=== PATIENT | female | born 1950 | race Caucasian/White ===

== ENCOUNTER 2023-02-11 13:35 | Inpatient (IN) | payer MEDICARE ==
[~2023-02-11] VITALS: Ht 157.5 cm; Wt 65.8 kg
[2023-02-11 14:34] LABS: BASOPHILS ABSOLUTE AUTO 0.04 K/mm3 (0.00-0.23); BASOPHILS PERCENT AUTO 0 % (0-2); EOSINOPHILS PERCENT AUTO 0 % (0-6); Hematocrit 44.2 % (33.0-51.0); Hemoglobin 14.8 g/dL (11.5-16.0); IMMATURE GRAN ABSOLUTE AUTO 0.07 K/mm3 (0.00-0.10); IMMATURE GRAN PERCENT AUTO 0 % (0-1); LYMPHOCYTES PERCENT AUTO 10 % (21-46); MONOCYTES ABSOLUTE AUTO 0.97 K/mm3 (0.16-1.47); MONOCYTES PERCENT AUTO 5 % (4-13); Mean Corpuscular HGB 29.9 pg (26.0-34.0); Mean Corpuscular HGB Conc 33.5 g/dL (31.5-36.5); Mean Corpuscular Volume 89 fL (80-100); Mean Platelet Volume 9.3 fL (9.1-12.4); NEUTROPHILS ABSOLUTE AUTO 15.12 K/mm3 (1.96-9.15); NEUTROPHILS PERCENT AUTO 85 % (41-73); Platelet Count 332 K/mm3 (150-400); RDW Coefficient Variation 13.2 % (11.7-14.2); RDW Standard Deviation 43.3 fL (35.1-46.3); Red Blood Cell Count 4.95 M/mm3 (3.80-5.20)
[2023-02-11 15:08] LABS: Albumin, Blood 3.9 g/dL (3.4-5.0); Albumin/Globulin Ratio 1.1 (0.8-1.8); Bilirubin, Total 0.5 mg/dL (0.1-1.0); Creatinine, Blood 0.87 mg/dL (0.40-1.00); Globulin, Blood 3.5 g/dL (2.2-4.0); Potassium, Blood 3.9 mmol/L (3.5-5.5); Total Protein, Blood 7.4 g/dL (6.4-8.2)
[2023-02-11] MEDS ORDERED: LISI20 PO (16:09)
[2023-02-11] MEDS ORDERED: ELIQUIS5 M3 PO (16:10)
[2023-02-11] MEDS ORDERED: ESCI20 PO (16:10)
[2023-02-11] MEDS ORDERED: METOPROLOL SUCC25 MG PO (16:11)
[2023-02-11 16:57] LABS: Influenza A, PCR NEGATIVE (NEGATIVE); Influenza B, PCR NEGATIVE (NEGATIVE); Resp Syncytial Virus, PCR NEGATIVE (NEGATIVE); SARS-Cov-2 (COVID-19) PCR, MMC NEGATIVE (NEGATIVE)
[2023-02-11 18:11] LABS: Source, Urine Clean Catch
[2023-02-11 18:32] LABS: Appearance, Urine Clear (Clear); Bilirubin, Urine Neg (Neg); Blood, Urine 2+ (Neg); Color, Urine Yellow (P-Yellow); Glucose Qualitative, Urine Neg (Neg); Ketones, Urine 1+ (Neg); Leukocyte Esterase, Urine 1+ (Neg); Nitrite, Urine Neg (Neg); Protein, Urine 1+ (Neg); Urobilinogen, Urine NORM (Normal)
[2023-02-11 19:02] LABS: Bacteria Many /hpf; Hyaline Casts 0-2 /lpf (0-2); Mucus Light (0-Heavy); Squamous Epithelial Cells Mod /hpf (Few)
[2023-02-12] VITALS (9 sets, daily range): BP systolic 77–113; BP diastolic 47–64
[2023-02-12 01:48] LABS: CPK Creatine Kinase 48 U/L (26-193)
--- NOTE | 2023-02-12 05:02 | NUR ---
SHIFT SUMMARY PT IS A&O4, SB TO THE BR, 2L NC PT DOES NOT USE O2 @HOME, PT COMPLAINTS OF WEAKNESS AND BODY ACHES WELL BEING FEBRILE THIS AM, PRN TYLENOL GIVEN PER EMAR, CONTINUE POC
[2023-02-12 09:41] LABS: BASOPHILS ABSOLUTE AUTO 0.07 K/mm3 (0.00-0.23); BASOPHILS PERCENT AUTO 0 % (0-2); EOSINOPHILS ABSOLUTE AUTO 0.14 K/mm3 (0.00-0.68); EOSINOPHILS PERCENT AUTO 0 % (0-6); Hematocrit 37.3 % (33.0-51.0); Hemoglobin 12.2 g/dL (11.5-16.0); IMMATURE GRAN ABSOLUTE AUTO 0.37 K/mm3 (0.00-0.10); IMMATURE GRAN PERCENT AUTO 1 % (0-1); LYMPHOCYTES ABSOLUTE AUTO 2.31 K/mm3 (0.84-5.20); LYMPHOCYTES PERCENT AUTO 7 % (21-46); MONOCYTES ABSOLUTE AUTO 1.57 K/mm3 (0.16-1.47); MONOCYTES PERCENT AUTO 5 % (4-13); Mean Corpuscular HGB 30.2 pg (26.0-34.0); Mean Corpuscular HGB Conc 32.7 g/dL (31.5-36.5); Mean Corpuscular Volume 92 fL (80-100); Mean Platelet Volume 9.7 fL (9.1-12.4); NEUTROPHILS PERCENT AUTO 86 % (41-73); Platelet Count 235 K/mm3 (150-400); RDW Coefficient Variation 13.4 % (11.7-14.2); RDW Standard Deviation 45.4 fL (35.1-46.3); Red Blood Cell Count 4.04 M/mm3 (3.80-5.20); White Blood Cell Count 31.66 K/mm3 (4.00-11.30)
[2023-02-12 09:56] LABS: CPK Creatine Kinase 51 U/L (26-193)
[2023-02-12 09:57] LABS: Albumin, Blood 2.8 g/dL (3.4-5.0); Albumin/Globulin Ratio 0.9 (0.8-1.8); Bilirubin, Total 0.4 mg/dL (0.1-1.0); Bun/Creatinine Ratio 19.4 (12.0-20.0); Creatinine, Blood 0.88 mg/dL (0.40-1.00); Potassium, Blood 3.9 mmol/L (3.5-5.5); Total Protein, Blood 5.8 g/dL (6.4-8.2)
--- NOTE | 2023-02-12 18:12 | NUR ---
SUMMARY- PT A/O X4, SBA TO BATHROOM RELATED TO MILD WEAKNESS AND IV POLE. PT'S BLOOD PRESURE LOW, INCREASED AFTER AM BOLUS- HAS HAD CONT IVM FLUID AND TOLERATING FOOD AND FLUID. DENIES ANY DIZZINESS, STATES GENERAL MALAISE. STATES OCC PAIN R RIBCAGE, INCERASED WITH COUGH. MED WITH TYLENOL RELATED TO DISCOMFORT, STATED PARTIAL RELEIF. PT HAS STRONG PROD COUGH WITH MOD AMOUNT OF WARD [place] SPUTUM, SENT SPECIMEN FOR CX. FAMILY AT BEDSIDE MOST OF THE DAY AND ACTIVE IN PT CARE. WILL REPORT TO NOC ALVIN
[2023-02-13 05:07] LABS: BASOPHILS ABSOLUTE AUTO 0.04 K/mm3 (0.00-0.23); BASOPHILS PERCENT AUTO 0 % (0-2); EOSINOPHILS ABSOLUTE AUTO 0.03 K/mm3 (0.00-0.68); EOSINOPHILS PERCENT AUTO 0 % (0-6); Hematocrit 34.2 % (33.0-51.0); Hemoglobin 11.4 g/dL (11.5-16.0); IMMATURE GRAN PERCENT AUTO 1 % (0-1); LYMPHOCYTES ABSOLUTE AUTO 2.88 K/mm3 (0.84-5.20); LYMPHOCYTES PERCENT AUTO 12 % (21-46); MONOCYTES PERCENT AUTO 4 % (4-13); Mean Corpuscular HGB 30.6 pg (26.0-34.0); Mean Corpuscular HGB Conc 33.3 g/dL (31.5-36.5); Mean Corpuscular Volume 92 fL (80-100); Mean Platelet Volume 10.3 fL (9.1-12.4); NEUTROPHILS ABSOLUTE AUTO 20.85 K/mm3 (1.96-9.15); NEUTROPHILS PERCENT AUTO 83 % (41-73); Platelet Count 238 K/mm3 (150-400); RDW Coefficient Variation 13.5 % (11.7-14.2); RDW Standard Deviation 45.9 fL (35.1-46.3); Red Blood Cell Count 3.72 M/mm3 (3.80-5.20)
--- NOTE | 2023-02-13 05:18 | NUR ---
SHIFT SUMMERY, PT RESTING IN BED, PT ALERT AND ORIENTED. PT DENIED SOB, PT UP TO BR AT JOELLEN, PT STEADY ON FEET, NO C/O SOB BP SEEMED BETTER LAST NOC. IN LOW 100S SYSTOLIC. CALL LIGHT IN REACH.
[2023-02-13 05:35] LABS: Bun/Creatinine Ratio 19.1 (12.0-20.0); Calcium, Blood 8.2 mg/dL (8.5-10.1); Creatinine, Blood 0.79 mg/dL (0.40-1.00); Potassium, Blood 3.8 mmol/L (3.5-5.5)
[2023-02-13 05:46] VITALS: BP 109/68
[2023-02-13 07:30] VITALS: BP 123/59
[2023-02-13 13:10] LABS: Campylobacter Sp Detected (NOT DETECT); E. Coli O157 Not Detected (NOT DETECT); Enteroaggregative E. coli-EAEC Not Detected (NOT DETECT); Enteropathogenic E. coli-EPEC Not Detected (NOT DETECT); Enterotoxigenic E. coli-ETEC Not Detected (NOT DETECT); Plesiomonas Shigelloides Not Detected (NOT DETECT); Salmonella Sp Not Detected (NOT DETECT); Shiga Toxin-prod E. coli-STEC Not Detected (NOT DETECT); Vibrio Cholerae Not Detected (NOT DETECT); Vibrio Sp Not Detected (NOT DETECT); Yersinia Enterocolitica Not Detected (NOT DETECT)
[2023-02-13 13:11] LABS: Adenovirus F 40/41 Not Detected (NOT DETECT); Astrovirus Not Detected (NOT DETECT); Cryptosporidium Not Detected (NOT DETECT); Cyclospora Cayetanensis Not Detected (NOT DETECT); Entamoeba Histolytica Not Detected (NOT DETECT); Giardia Lamblia Not Detected (NOT DETECT); Norovirus GI/GII Detected (NOT DETECT); Rotavirus A Not Detected (NOT DETECT); Sapovirus Not Detected (NOT DETECT); Shigella/Enteroin E. coli-EIEC Not Detected (NOT DETECT)
[2023-02-13 15:33] VITALS: BP 149/74
--- NOTE | 2023-02-13 17:04 | NUR ---
SHIFT SUMMARY PT AWAKE DURING SHIFT REPORT. PLEASANT AND CO-OP WITH CARE. INDEPENDENT IN AND TO BTHRM. VSS; SEE CHART. RESIDENTS AND DR YARBROUGH IN TO SEE PT IN AM. PT REPORTED NEW ONSET OF DIARRHEA TODAY; GI PANEL SENT. PT'S SON HERE TO VISIT THIS AFTERNOON. PT FEELING MUCH BETTER AND WANTING TO GO HOME. DR SLOAN NOTIFIED OF PT WANTING TO GO HOME; POSSIBLE D/C TOMORROW IF NOT LATER TODAY. DR SLOAN WANTING TO SEE RESULTS OF GI PANEL. PT RESTING QUIETLY AT THIS TIME. DENIED FURTHER NEEDS. CALL LT IN REACH.
[2023-02-13 20:46] VITALS: BP 153/72
--- NOTE | 2023-02-14 02:19 | NUR ---
SHIFT SUMMERY, PT RESTING IN BED, WATCHING TV . PT HOPING TO GO HOME IN AM. PT NOT COUGHING TONIGHT AND LUNGS SOUND CLEAR BUT PT HAS SOME WHEEZES BILAT BUT LUNG SOUND SEEM BETTER. CALL LIGHT IN REACH.
[2023-02-14 04:43] LABS: BASOPHILS ABSOLUTE AUTO 0.03 K/mm3 (0.00-0.23); BASOPHILS PERCENT AUTO 0 % (0-2); EOSINOPHILS ABSOLUTE AUTO 0.07 K/mm3 (0.00-0.68); EOSINOPHILS PERCENT AUTO 0 % (0-6); Hematocrit 35.2 % (33.0-51.0); Hemoglobin 11.6 g/dL (11.5-16.0); IMMATURE GRAN ABSOLUTE AUTO 0.05 K/mm3 (0.00-0.10); IMMATURE GRAN PERCENT AUTO 0 % (0-1); LYMPHOCYTES ABSOLUTE AUTO 2.63 K/mm3 (0.84-5.20); LYMPHOCYTES PERCENT AUTO 17 % (21-46); MONOCYTES ABSOLUTE AUTO 0.72 K/mm3 (0.16-1.47); MONOCYTES PERCENT AUTO 5 % (4-13); Mean Corpuscular HGB 29.9 pg (26.0-34.0); Mean Corpuscular Volume 91 fL (80-100); Mean Platelet Volume 10.5 fL (9.1-12.4); NEUTROPHILS ABSOLUTE AUTO 12.17 K/mm3 (1.96-9.15); NEUTROPHILS PERCENT AUTO 78 % (41-73); Platelet Count 258 K/mm3 (150-400); RDW Coefficient Variation 13.2 % (11.7-14.2); RDW Standard Deviation 43.8 fL (35.1-46.3); Red Blood Cell Count 3.88 M/mm3 (3.80-5.20); White Blood Cell Count 15.67 K/mm3 (4.00-11.30)
[2023-02-14 05:23] VITALS: BP 153/80
[2023-02-14 07:57] LABS: Bun/Creatinine Ratio 18.5 (12.0-20.0); Calcium, Blood 8.6 mg/dL (8.5-10.1); Creatinine, Blood 0.76 mg/dL (0.40-1.00); Potassium, Blood 3.7 mmol/L (3.5-5.5)
[2023-02-14 08:01] VITALS: BP 143/63
[2023-02-14 15:36] VITALS: BP 156/97
--- NOTE | 2023-02-14 17:41 | NUR ---
SHIFT SUMMARY: PT A&O X4. PT PLEASANT AND COOPERATIVE WITH ALL CARE. PT C/O FREQUENT DIARRHEA IN MIDDLE OF NIGHT THROUGH MORNING. PT STATES SHE FELT SHE WOULD NOT BE ABLE TO GET HOME WITHOUT HAVING AN ACCIDENT. PT CURRENTLY STATES HER STOOL IS IMPROVING AND IS ALMOST BACK TO NORMAL. PT C/O PAIN IN HER IV WELL HEADACHE. IV FLUSHES WELL. TOLD PT TO LET ME KNOW IF SHE WANTS ME TO CHANGE OUT IV IF IT GETS TO PAINFUL. TYLENOL GIVEN. PT A LITTLE HYPERTENSIVE THIS SHIFT. LISINOPRIL ADDED TO EMAR. CALL LIGHT IN REACH. BED IN LOWEST POSITION. WILL CONTINUE TO MONITOR.
[2023-02-14 19:26] VITALS: BP 131/69
--- NOTE | 2023-02-15 04:47 | NUR ---
SHIFT JOHANA, PT UP IN ROOM WALKING AROUND. PT STATED SHE THOUGH THAT SHE FELT BETTER THAN EARLYER IN THE DAY. PT VERY TALKATIVE. LATER CHECKED ON PT AND PT ASLEEP APPEARED TO BE COMFORTABLE RESP UNLABORED AND EVEN. CALL LIGHT IN REACH.
[2023-02-15 05:01] VITALS: BP 134/72
[2023-02-15 05:51] LABS: Calcium, Blood 8.7 mg/dL (8.5-10.1); Creatinine, Blood 0.69 mg/dL (0.40-1.00)
[2023-02-15 07:45] LABS: BASOPHILS ABSOLUTE AUTO 0.03 K/mm3 (0.00-0.23); BASOPHILS PERCENT AUTO 0 % (0-2); EOSINOPHILS ABSOLUTE AUTO 0.07 K/mm3 (0.00-0.68); EOSINOPHILS PERCENT AUTO 1 % (0-6); Hematocrit 37.1 % (33.0-51.0); Hemoglobin 12.2 g/dL (11.5-16.0); IMMATURE GRAN ABSOLUTE AUTO 0.03 K/mm3 (0.00-0.10); IMMATURE GRAN PERCENT AUTO 0 % (0-1); LYMPHOCYTES ABSOLUTE AUTO 1.69 K/mm3 (0.84-5.20); LYMPHOCYTES PERCENT AUTO 16 % (21-46); MONOCYTES ABSOLUTE AUTO 0.81 K/mm3 (0.16-1.47); MONOCYTES PERCENT AUTO 8 % (4-13); Mean Corpuscular HGB 29.9 pg (26.0-34.0); Mean Corpuscular HGB Conc 32.9 g/dL (31.5-36.5); Mean Corpuscular Volume 91 fL (80-100); Mean Platelet Volume 10.5 fL (9.1-12.4); NEUTROPHILS ABSOLUTE AUTO 7.96 K/mm3 (1.96-9.15); NEUTROPHILS PERCENT AUTO 75 % (41-73); Platelet Count 323 K/mm3 (150-400); RDW Coefficient Variation 13.1 % (11.7-14.2); RDW Standard Deviation 43.8 fL (35.1-46.3); Red Blood Cell Count 4.08 M/mm3 (3.80-5.20); White Blood Cell Count 10.59 K/mm3 (4.00-11.30)
[2023-02-15 07:50] VITALS: BP 127/64
[2023-02-15] MEDS ORDERED: VISBIOME 112.51 EACH PO (12:02)
--- NOTE | 2023-02-15 14:21 | NUR ---
DISCHARGE: PT D/C VIA AUTOMOBILE WITH DAUGHTER. PT HAVING SMALL AMOUNT OF DIARRHEA BUT STATES IT IS BETTER TODAY THAN PREVIOUS DAYS. NO NEW MEDICATIONS. IV AND TELE TAKEN OFF BY NAVEED [place]. PRINTED OUT EDUCATION FOR CONTACT PRECAUTIONS AND LOW FIBER DIET OPTIONS. ALL BELONGS SENT WITH PT AND DAUGHTER. PT KNOWS TO MAKE FOLLOW-UP APPOINTMENT WITH PCP.
== END 2023-02-15 12:45 | disposition home or self-care (01) | DRG 193 ==
LOC: ER 13:35 → MEDS 23:44
PROVIDERS: Family Medicine; Physician Assistant; Student in an Organized Health Care Education/Training Program; ADMIT Internal Medicine
DX: J12.9 Viral pneumonia, unspecified (principal); J96.91 Respiratory failure, unspecified with hypoxia; A04.5 Campylobacter enteritis; A08.11 Acute gastroenteropathy due to Norwalk agent; R94.31 Abnormal electrocardiogram [ECG] [EKG]; E27.8 Other specified disorders of adrenal gland; I48.91 Unspecified atrial fibrillation; F32.A Depression, unspecified; E86.1 Hypovolemia; I10 Essential (primary) hypertension; I95.9 Hypotension, unspecified; M54.9 Dorsalgia, unspecified; G89.29 Other chronic pain; Z20.822 Contact with and (suspected) exposure to COVID-19; Z79.899 Other long term (current) drug therapy; Z79.811 Long term (current) use of aromatase inhibitors; Z79.01 Long term (current) use of anticoagulants; Z86.73 Personal history of transient ischemic attack (TIA), and cerebral infarction without residual deficits; Z90.49 Acquired absence of other specified parts of digestive tract; Z98.890 Other specified postprocedural states; Z87.891 Personal history of nicotine dependence
CPT/HCPCS: 0241U; 36415; 71045; 74177; 80048; 80053; 81001; 82550; 83605; 83690; 83880; 84145; 84484; 85025; 87040; 87070; 87086; 87147; 87205; 87507; 93005; 93010; 93306; 96361; 96365-59; 96366; 96367; 96375; 99285-25; A9270; J0456; J0696; J7030; J7050; Q9967